=== PATIENT | male | born 1990 | race Caucasian/White ===

== ENCOUNTER 2019-12-11 10:12 | Outpatient (RCR) | payer OTHER | END 2019-12-12 | LOC: M PT 10:12 | PROVIDERS: ATTEND Physician Assistant | DX: T21.34XA Burn of third degree of lower back, initial encounter (principal); T21.24XA Burn of second degree of lower back, initial encounter; X58.XXXA Exposure to other specified factors, initial encounter; Y92.9 Unspecified place or not applicable ==

== ENCOUNTER 2020-01-10 10:11 | Outpatient (RCR) | payer OTHER | END 2020-01-12 | LOC: M PT 10:11 | PROVIDERS: ATTEND Physician Assistant | DX: T21.34XA Burn of third degree of lower back, initial encounter (principal); T21.24XA Burn of second degree of lower back, initial encounter ==

== ENCOUNTER 2020-01-31 09:47 | Outpatient (RCR) | payer OTHER | END 2020-02-11 | LOC: M PT 09:47 | PROVIDERS: ATTEND Physician Assistant | DX: T21.20XD Burn of second degree of trunk, unspecified site, subsequent encounter (principal); X58.XXXD Exposure to other specified factors, subsequent encounter ==

== ENCOUNTER → 2020-03-13 | Outpatient (RCR) | payer OTHER | LOC: M PT 02-12 10:16 → M OT 02-12 10:17 → M PT 02-14 09:46 → M OT 02-19 09:27 → M PT 02-19 09:27 → M OT 02-21 10:13 → M PT 02-26 10:00 → M OT 02-26 10:57 → M PT 02-28 10:06 → M OT 11:15 | PROVIDERS: ATTEND Orthopaedic Surgery | DX: T21.34XA Burn of third degree of lower back, initial encounter (principal); T21.24XA Burn of second degree of lower back, initial encounter ==

== ENCOUNTER 2021-03-23 16:26 | Emergency (ER) | payer OTHER ==
[~2021-03-23] VITALS: Ht 175.3 cm; Wt 104.5 kg
[2021-03-23] MEDS ORDERED: NORCO, ANEXSIA 5/325MG TABLET (HYDROcodone/ACETAMINOPHEN) PO ONE (18:10)
[2021-03-23] MEDS ORDERED: HYDR-3713 PO (18:18)
[2021-03-23 18:35] VITALS: BP 127/78
== END 2021-03-23 18:43 | disposition home or self-care (01) ==
LOC: M ED 16:26
DX: S82.64XA Nondisplaced fracture of lateral malleolus of right fibula, initial encounter for closed fracture (principal); W18.40XA Slipping, tripping and stumbling without falling, unspecified, initial encounter; Y92.9 Unspecified place or not applicable; Y93.9 Activity, unspecified; Y99.0 Civilian activity done for income or pay

== ENCOUNTER 2022-01-08 00:19 | Emergency (ER) | payer OTHER ==
[~2022-01-08] VITALS: Ht 175.3 cm; Wt 97.8 kg
[~2022-01-08 00:19] MED LIST: HYDR-3713 PO
[2022-01-08 00:22] VITALS: BP 137/84
[2022-01-08] MEDS ORDERED: LIDOCAINE VISCOUS 2% SOLN 15ML UDC SS ONE (01:55)
[2022-01-08] MEDS ORDERED: dexameTHASONE 4 MG/ML 1ML VIAL (J1100 PER 1MG) PO ONE (01:55)
[2022-01-08] MEDS ORDERED: AMOXICILLIN 500 MG CAP PO ONE (01:55)
[2022-01-08] MEDS ORDERED: LIDO2SOL17 PO (01:57)
[2022-01-08] MEDS ORDERED: AMOX500C PO (01:57)
[2022-01-08] MEDS ORDERED: PRED20TA PO (01:57)
== END 2022-01-08 02:26 | disposition home or self-care (01) ==
LOC: M ED 00:19
DX: J02.0 Streptococcal pharyngitis (principal); F17.200 Nicotine dependence, unspecified, uncomplicated; Z79.899 Other long term (current) drug therapy
CPT/HCPCS: 87880; 99282; J1100